=== PATIENT | female | born 1975 | race Asian ===

== ENCOUNTER 2018-03-20 06:15 | Day surgery (SDC) | payer OTHER ==
[~2018-03-20] VITALS: Ht 160 cm; Wt 97.5 kg
[2018-03-20 07:39] LABS: HCG,QUAL RESULT NEGATIVE (NEGATIVE)
[2018-03-20] MEDS ORDERED: ONDANSETRON HCL 4 MG/2 ML VIAL IVP ONE (09:06)
[2018-03-20] MEDS ORDERED: KETOROLAC TROMETHAMINE 30 MG VIAL IVP ONE (09:06)
[2018-03-20] MEDS ORDERED: NS 1000 ML IV.SOLN IV ONE (09:06)
[2018-03-20] MEDS ORDERED: MIDAZOLAM HCL 5 MG/5 ML VIAL IVP ONE (09:06)
[2018-03-20] MEDS ORDERED: SEVOFLURANE 15 MIN GAS INH ONE (09:06)
[2018-03-20] MEDS ORDERED: LR 1,000 ML IV.SOLN IV ONE (09:06)
[2018-03-20] MEDS ORDERED: PROPOFOL 200MG/ 20ML VIAL (DIPRIVAN) IV ONE (09:06)
[2018-03-20] MEDS ORDERED: fentaNYL CITRATE/PF 100 MCG/2 ML AMP IVP ONE (09:06)
[2018-03-20] MEDS ORDERED: ONDANSETRON HCL 4 MG/2 ML VIAL IVP PRN (09:30)
[2018-03-20] MEDS ORDERED: fentaNYL CITRATE/PF 100 MCG/2 ML AMP IVP PRN ×2 (09:30)
[2018-03-20] MEDS ORDERED: KETOROLAC TROMETHAMINE 30 MG VIAL IVP PRN (09:30)
[2018-03-20] MEDS ORDERED: OXYCODONE/ACETAMINOPHEN 5-325 TABLET PO PRN ×2 (10:15)
[2018-03-20] MEDS ORDERED: IBUPROFEN 800 MG TABLET PO PRN (10:15)
[2018-03-20 11:00] VITALS: BP_SYST 131
== END 2018-03-20 11:45 | disposition home or self-care (01) ==
LOC: SMU 06:15 → SDS 06:15
PROVIDERS: ATTEND Obstetrics & Gynecology
DX: N84.0 Polyp of corpus uteri (principal); I10 Essential (primary) hypertension; E66.9 Obesity, unspecified; Z90.49 Acquired absence of other specified parts of digestive tract; Z82.49 Family history of ischemic heart disease and other diseases of the circulatory system; Z83.3 Family history of diabetes mellitus; Z79.899 Other long term (current) drug therapy
CPT/HCPCS: 58558; 84703; 88305; J1885; J2250; J2405; J2704; J3010; J7030; J7120

== ENCOUNTER 2018-05-31 06:00 | Day surgery (SDC) | payer OTHER ==
[~2018-05-31] VITALS: Ht 160 cm; Wt 95.3 kg
[2018-05-31] MEDS ORDERED: PROPOFOL 200MG/ 20ML VIAL (DIPRIVAN) IV ONE (07:37)
[2018-05-31] MEDS ORDERED: MIDAZOLAM HCL 5 MG/5 ML VIAL IVP ONE (07:37)
[2018-05-31] MEDS ORDERED: SEVOFLURANE 15 MIN GAS INH ONE (07:37)
[2018-05-31] MEDS ORDERED: NS IRRIG SOLN 1000 ML IR ONE (07:37)
[2018-05-31] MEDS ORDERED: NS 1000 ML IV.SOLN IV ONE (07:37)
[2018-05-31] MEDS ORDERED: LR 1,000 ML IV.SOLN IV ONE (07:37)
[2018-05-31] MEDS ORDERED: fentaNYL CITRATE/PF 100 MCG/2 ML AMP IVP ONE (07:37)
[2018-05-31] MEDS ORDERED: METOCLOPRAMIDE HCL 10 MG/2 ML VIAL IVP PRN (08:15)
[2018-05-31] MEDS ORDERED: fentaNYL CITRATE/PF 100 MCG/2 ML AMP IVP PRN ×2 (08:15)
[2018-05-31] MEDS ORDERED: KETOROLAC TROMETHAMINE 30 MG VIAL IVP PRN (08:15)
[2018-05-31] MEDS ORDERED: IBUPROFEN 800 MG TABLET PO PRN (08:30)
[2018-05-31] MEDS ORDERED: OXYCODONE/ACETAMINOPHEN 5-325 TABLET PO PRN ×2 (08:30)
[2018-05-31] MEDS ORDERED: ONDANSETRON HCL 4 MG/2 ML VIAL IVP PRN (08:30)
[2018-05-31 09:44] VITALS: BP_SYST 106
== END 2018-05-31 11:05 | disposition home or self-care (01) ==
LOC: SMU 06:00 → SDS 06:00
PROVIDERS: ATTEND Obstetrics & Gynecology
DX: N92.0 Excessive and frequent menstruation with regular cycle (principal); E66.9 Obesity, unspecified; G47.9 Sleep disorder, unspecified; Z83.3 Family history of diabetes mellitus; Z83.49 Family history of other endocrine, nutritional and metabolic diseases; Z68.37 Body mass index [BMI] 37.0-37.9, adult; I10 Essential (primary) hypertension
CPT/HCPCS: 58563; 88305; J2250; J2704; J3010; J7030; J7120